=== PATIENT | male | born 1990 | race Caucasian/White ===

== ENCOUNTER 2020-06-14 10:08 | Emergency (ER) | payer BC, SELFPAY ==
--- NOTE | 2020-06-14 10:12 | W.ED.GENAD ---
Discharge Plan Disposition Patient Disposition: HOME Condition: Stable Discharge Details Clinical Impression: Feeling of foreign body in throat Primary Care Provider: None,None ED Provider: Chase Eddy Home Meds and New Rx's Prescriptions: No Action No Known Home Meds RF: 0 Discharge Instructions Instructions: Foreign Body in Pharynx (ED) Additional Instructions: At this time you are able to swallow, breathe, speak without difficulty. X-rays of your chest and neck are unremarkable. Difficult to say whether you could have a small piece of cashew stuck versus irritation secondary to vigorously coughing. Please watch for new or worsening symptoms and return to the ER for any concerns. I am giving you the name and number of our local general surgeon, if your symptoms are not improving over the next couple of days I do recommend that you contact their office for outpatient reevaluation. As we discussed, endoscopy may be indicated. Referrals: Clarisa Peters MD [ [facility] STAFF PHYSICIAN] - Discharge Data Discharge Date/Time-TO BE ENTERED AT DEPARTURE: 06/14/20 11:49 Medical Decision Making 29-year-old gentleman presents after a choking episode last night secondary to inhaling a cashew. Concern of possible foreign body. Patient appears well, nontoxic. Able to speak without difficulty. No airway compromise, stridor, wheezing. Manages his secretions without difficulty. Question foreign body versus aspiration versus irritation secondary to choking and coughing vigorously. Will try EZ effervescent granules, obtain x-ray of chest and soft tissue neck. Patient able to tolerate easy effervescence without difficulty. Reports no real significant change of her symptoms. X-ray of soft tissue neck and chest read by radiology is unremarkable. Patient given Mylanta and lidocaine p.o. Upon reevaluation he reports that his throat is numb so he does not know if the sensation is there still or not. We discussed that there is no evidence of airway compromise, difficulty speaking or swallowing. Certainly there is no indication for emergent endoscopy. Patient understands this and is comfortable with discharge home. He will continue to eat and drink normally and watch symptoms carefully. If this is simply irritation it will likely improve on its own and if there is truly a small foreign body it may resolve on its own with normal eating and drinking. We discussed that if his symptoms persist or worsen he can always return here to the ER and I will give him a referral to surgery so that he can set up an outpatient appointment. Patient comfortable this plan and has no additional questions or concerns. HPI General Mode of arrival: ambulatory. Date/Time Provider Initiated Documentation: 06/14/20 10:12. Limitations to Documentation: no limitations. Information obtained by: patient. HPI Narrative: This is a 29-year-old gentleman with no significant past medical history presenting to the ER for concern of possible cashew stuck in his throat. He reports that he was eating cashews last night, had finished eating them, and after approximately 5-7 minutes later he felt as though there is a small piece of cashew stuck in the back of his mouth. He used his tongue and finger to dislodge the cashew and reports it went down the wrong pipe. He denies any pain, difficulty speaking, swallowing, breathing. He reports that he initially inhales at the cashew and choked. He then attempted to cough vigorously to get the cashew out and after constant vigorous coughing noticed that his sputum was slightly blood-tinged. There was no blood today when coughing. He continues to feel a foreign body-irritation sensation in his throat. No additional concerns. Related Data Home Medications Medication Instructions Recorded Confirmed Unknown [No Known Home Meds] 06/14/20 06/14/20 Allergies Allergy/AdvReac Type Severity Reaction Status Date / Time No Known Allergies Allergy Unverified 06/14/20 10:15 Review of Systems ENT Ears, Nose, Mouth, and Throat: Denies neck pain, Denies sore throat and Denies throat swelling Cardiovascular Cardiovascular: Denies chest pain and Denies dyspnea Respiratory Respiratory: Denies cough, Denies dyspnea, Denies stridor and Denies wheezing Gastrointestinal Gastrointestinal: Denies abdominal pain, Denies nausea and Denies vomiting Musculoskeletal Musculoskeletal: Denies neck pain Allergic/Immunologic Allergic/Immunologic: Denies throat swelling and Denies wheezing FOR[facility] Social History Smoking/Tobacco Use Status: Never Alcohol Intake: current Alcohol Intake frequency: a few times a month Drug use: Socially Substance use type: marijuana Do you feel safe at home: Yes Do you feel safe in your relationship?: Yes Exam Const General: cooperative, healthy appearing, comfortable and no acute distress Orientation: alert, awake and oriented x3 HENMT Head: normal to inspection, normocephalic and atraumatic General nose exam: external nose normal Face and sinus: normal facial exam Mouth: oral mucosae normal and moist mucous membranes Teeth and gingiva: dentition normal Throat: posterior oropharynx normal Eyes Conjunctivae: conjunctivae normal Sclera: sclerae normal Neck Neck: normal visual inspection, full ROM, no lymphadenopathy, no meningeal signs, trachea midline, supple and nontender Resp Effort & Inspection: normal respiratory effort and able to speak in complete sentences Auscultation: clear to auscultation bilaterally Cardio Rate: regular rate Rhythm: regular rhythm GI Palpation: soft and nontender Skin General skin exam: no rashes or lesions noted Neuro General: patient alert, patient awake, moves all extremities and no focal motor deficits Sensory Exam: no sensory deficits noted Psych Appearance: grossly normal Mental Status: mental status grossly normal
[2020-06-14 10:13] VITALS: BP 132/79; PULSE 103; RESP 22; TEMP 36.4; O2SAT 99
--- NOTE | 2020-06-14 10:15 | DI.RAD_ITS ---
EXAM: XR CHEST 2V PA LATERAL CLINICAL HISTORY: choking episode TECHNIQUE: 2D digital imaging was performed. COMPARISON: No exams were available for comparison FINDINGS: The heart is not enlarged. The lungs are clear and well expanded. No pleural effusion seen. Mediastin al contours appear intact. IMPRESSION: Normal chest RADIATION DOSE DELIVERED: Total DLP
[2020-06-14] MEDS: Simethicone/Sod Bicarb/Cit Ac, 4 gram PACKET 1 PACKET PO (10:36)
--- NOTE | 2020-06-14 10:52 | DI.RAD_ITS ---
EXAM: XR SOFT TISSUE NECK CLINICAL HISTORY: ? fb, juan TECHNIQUE: COMPARISON: No exams were available for comparison FINDINGS: Two views were obtained. The tracheal laryngeal air shadow appears normal. No retropharyngeal soft tissue prominence seen. No bony abnormality. IMPRESSION: Negative soft tissue examination of the neck. RADIATION DOSE DELIVERED: Total DLP
[2020-06-14 11:47] VITALS: BP 106/70; PULSE 72; RESP 20; TEMP 36.2; O2SAT 97
== END 2020-06-14 11:49 | disposition home or self-care (01) ==
LOC: ER 11:45
PROVIDERS: Emergency Provider Physician Assistant
DX: R09.89 Other specified symptoms and signs involving the circulatory and respiratory systems (principal)
CPT/HCPCS: 99284; 70360; 71046

== ENCOUNTER 2020-12-19 10:53 | Outpatient (REF) | payer BC, SELFPAY ==
[2020-12-19 14:35] LABS: Calculated LDL 77 mg/dL (<100); Cholesterol 168 mg/dL (<200); HDL Cholesterol 77 mg/dL (40-60); Triglyceride 73 mg/dL (<150)
== END 2020-12-19 10:54 | disposition home or self-care (01) ==
LOC: NCHCN 10:53
PROVIDERS: PCP Family Medicine; Visit Provider Family Medicine
DX: Z00.00 Encounter for general adult medical examination without abnormal findings (principal); J30.9 Allergic rhinitis, unspecified
CPT/HCPCS: 80061

== ENCOUNTER 2021-01-20 11:11 | Outpatient (REF) | payer BC, SELFPAY ==
--- NOTE | 2021-01-20 10:30 | SKI_PTH ---
PATIENT: Torey Davis LOC: [facility] U#:[id number] AGE/SX: 30/M ROOM: RE01/20/[address]: Abdias Montaño : 1990 BED: DIS: 01/20/2021 SPEC #: [id number] RECD: 01/20/21 13:09 STATUS: DARRELL REInessa #: [id number] VINICIUS: 01/20/21 10:[address]: Abdias Montaño DEPT: Surgical Specimen RECD BY: Johana Art Tissues: 1 - SKIN BIOPSY(SHAVE/PUNCH) Procedures: SKIN LEVEL 4 SPECIAL STAIN 1 Comments: [id number]
[2021-01-20 13:32] LABS: Abs Immature Grans 0.01 10^3/uL (0.0-0.06); Absolute Basophil Count 0.02 10^3/uL (0.0-0.2); Absolute Eosinophil Count 0.35 10^3/uL (0.0-0.7); Absolute Lymphocyte Count 1.29 10^3/uL (1.2-3.4); Absolute Monocyte Count 0.46 10^3/uL (0.1-0.8); Absolute Neutrophil Count 4.25 10^3/uL (1.2-6.7); Basophils % 0.3; Eosinophils % 5.5; HCT 43.2 % (40.0-50.0); Immature Grans % 0.2; Lymphocytes % 20.2; MCH 31.4 pg (27.0-33.0); MCHC 34.7 % (32.0-36.0); MCV 90.6 fL (80-95); MPV 9.4 fL (8.0-11.0); Monocytes % 7.2; Neutrophils % 66.6; Nucleated RBC 0 %; Platelet Count 181 10^3/uL (130-400); RBC 4.77 10^6/uL (4.36-5.78); RDW 11.5 % (11.8-14.1); RDW-SD 38.2 fL; WBC 6.38 10^3/uL (4.4-10.8)
[2021-01-20 13:42] LABS: ESR < 2 mm//hr (0-15)
[2021-01-20 14:29] LABS: ALT 27 U/L (16-63); AST 11 U/L (15-37); Albumin 4.2 g/dL (3.4-5.0); Alkaline Phosphatase 42 U/L (46-116); Anion Gap 7.6 mmol/L (3-11); BUN 16 mg/dL (7-18); Bilirubin, Total 0.6 mg/dL (0.2-1.0); CO2 29.4 mmol/L (21.0-32.0); CREATININE 0.7 mg/dL (0.70-1.30); Calcium 8.9 mg/dL (8.5-10.1); Chloride 103 mmol/L (98-107); Glucose 90 mg/dL (74-106); Sodium 140 mmol/L (136-145)
== END 2021-01-20 11:12 | disposition home or self-care (01) ==
LOC: NCHCN 11:11
PROVIDERS: PCP Family Medicine; Visit Provider Family Medicine
DX: L30.8 Other specified dermatitis (principal)
CPT/HCPCS: 80053; 85652; 85025; 88305; 88312

== ENCOUNTER 2024-09-21 18:48 | Outpatient (REF) | payer BC, SELFPAY ==
[2024-09-21 16:01] LABS: Absolute Basophil Count 0.02 10^3/uL (0.0-0.2); Absolute Eosinophil Count 0.04 10^3/uL (0.0-0.7); Absolute Lymphocyte Count 1.52 10^3/uL (1.2-3.4); Absolute Neutrophil Count 1.47 10^3/uL (1.2-6.7); Basophils % 0.6 %; Eosinophils % 1.2 %; HCT 44.3 % (40.0-50.0); HGB 15.6 g/dL (13.5-17.5); Lymphocytes % 45.4 %; MCH 31.3 pg (27.0-33.0); MCHC 35.2 % (32.0-36.0); MCV 89 fL (80-95); Neutrophils % 43.8 %; Platelet Count 194 10^3/uL (130-400); RBC 4.99 10^6/uL (4.36-5.78); RDW 11.2 % (11.8-14.1); RDW-SD 35.8 fL; WBC 3.35 10^3/uL (4.4-10.8)
[2024-09-21 22:53] LABS: Hepatitis C Ab w Rflx HCV PCR Negative (Negative)
[2024-09-22 10:58] LABS: HIV-1/2 Ag & Ab Screen Negative (Negative)
== END 2024-09-21 18:49 | disposition home or self-care (01) ==
LOC: NCHCN 18:48
PROVIDERS: PCP Family Medicine; Visit Provider Family Medicine
DX: Z51.81 Encounter for therapeutic drug level monitoring (principal); Z11.4 Encounter for screening for human immunodeficiency virus [HIV]; Z11.59 Encounter for screening for other viral diseases
CPT/HCPCS: 86803; 87389; 85025

== ENCOUNTER 2025-05-10 05:30 | Emergency (ER) | payer BC, SELFPAY ==
[2025-05-10 05:52] VITALS: BP 130/92; PULSE 76; RESP 16; O2SAT 99
--- NOTE | 2025-05-10 07:15 | ED.GENADUL_ITS ---
Discharge Plan Disposition Patient Disposition: Home Discharge Details Clinical Impression: Lower back pain Primary Care Provider: Kenia Hall ED Provider: Sree Velazquez Home Meds and New Rx's Prescriptions: New diazepam [Valium] 5 mg tablet 5 mg PO TID PRNQty: 5 0RF Continued lisdexamfetamine 30 mg capsule 30 mg PO DAILY Discharge Instructions Additional Instructions: You are seen in the emergency department for your low back pain. As we discussed please return if you develop any weakness in your legs if you take any falls if you lose control of your bowels or bladder or if you have any other concerns. For your pain please take medications as follows: 1. Take acetaminophen (Tylenol), 1,000 mg (two 500 mg tabs) every 6 hours [2. Take ibuprofen (Advil), 400 mg every 6 hours.] You are also receiving an additional medicine called diazepam which you should take as directed. Please do not drive or drink alcohol after taking diazepam. HPI General Date/Time Provider Initiated Documentation: 05/10/25 06:09 . HPI Narrative: MDM This is an overall very well-appearing normothermic and not tachycardic 34-year-old male with acute on chronic low back pain lacking red flags for which patient will receive a short course of diazepam prior to empiric trial of discharge with expectant outpatient management. Patient has no history of malignancy to suggest increased risk for pathological fracture. His feet are warm and well-perfused with intact PT and DP pulses so I am not concerned for critical limb ischemia so I do not feel that the patient requires a CT angiogram of his abdomen pelvis with runoffs. He has not lost control of his bowels nor bladder so I am not suspicious for cauda equina syndrome. No pain out of proportion to suggest necrotizing soft tissue infection. Patient has no neur ological deficits to suggest benefit from emergent MRI. Soft nontender abdomen with no abdominal pain so my suspicion is low for appendicitis. No chest pain to suggest pneumothorax nor pneumonia. No recent spinal instrumentation so I am not suspicious for spinal epidural hematoma. Patient denies IV drug use and has not had fevers so my suspicion is low for spinal epidural abscess. Patient has no rash to his back to suggest zoster. Patient has had similar symptoms in the past plans to go to the chiropractor tomorrow. I counseled the patient on scheduled acetaminophen ibuprofen and also gave him a short course of diazepam after reviewing his PDMP record. We discussed that he should return to the ED if he developed any numbness to his legs or any weakness of his lower extremities or if he had any other concerns. He understood his return indications and was discharged with empiric trial of expectant outpatient management. HPI This is a patient with a history of recurrent back pain presenting with acute back pain. The patient began experiencing back pain on 05/09/2025 at 10 AM, which he describes as a sensation of his back being on the verge of giving out. The pain was triggered while picking up an object. He reports no unusual activities the previous day. He has a history of back issues, but this episode is particularly intense. He notes that his posture is currently abnormal due to the pain. He has been managing the pain with ibuprofen, but it has not provided relief. He has an appointment with a chiropractor tomorrow and is seeking immediate intervention to alleviate the pain. He reports no recent back surgeries or procedures, loss of bowel or bladder control, use of anticoagulants, loss of sensation between his legs, numbness, tingling, fever, intravenous drug use, diabetes, chest pain, nausea, vomiting, or abdominal pain. He typically experiences minor back strains 3 to 4 times a year, with one or two major episodes annually. These are usually managed by his chiropractor. Patient denies IV drug use. Exam General: Well-appearing in no acute distress speaking in complete sentences. Head: Normocephalic, atraumatic. Eye: Extraocular eye movements intact. No conjunctival injection. No scleral icterus. Ear, nose, mouth, throat: Grossly normal inspection. Normal voice, handling secretions normally. Neck: Trachea midline. Cardiovascular: Well-perfused distal extremities. Respiratory: Nonlabored respiration. Gastrointestinal: Nondistended abdomen. Musculoskeletal: Sensation and motor function intact bilateral lower extremities. 5 out of 5 bilateral lower extremity strength in dorsi and plantarflexion. Skin: Normal for age and race, grossly normal temperature and turgor. No acute rash. Neurologic: Alert and appropriate, no apparent acute deficits. Psychiatric: Mood and manner are appropriate. Grooming and personal hygiene are appropriate. Related Data Home Medications ?Medication ?Instructions ?Recorded ?Confirmed diazepam 5 mg tablet (Valium) 5 mg PO TID PRN #5 tabs 05/10/25 lisdexamfetamine 30 mg capsule 30 mg PO DAILY 05/10/25 05/10/25 Previous Rx's ?Medication ?Instructions ?Recorded diazepam 5 mg tablet (Valium) 5 mg PO TID PRN #5 tabs 05/10/25 Allergies Allergy/AdvReac Type Severity Reaction Status Date / Time No Known Allergies Allergy Unverified 05/10/25 05:56 General Stated Complaint: Nk/Back Pain KARISHMA: 4 Course Vital Signs Vital signs: Vital Signs Pulse 76 05/10/25 05:52 Respiratory Rate 16 05/10/25 05:52 Blood Pressure 130/92 H 05/10/25 05:52 Pulse Oximetry 99 05/10/25 05:52 Pulse 76 05/10/25 05:52 Respiratory Rate 16 05/10/25 05:52 Blood Pressure 130/92 H 05/10/25 05:52 Blood Pressure Position Sitting 05/10/25 05:52 Pulse Oximetry 99 05/10/25 05:52 Oxygen Delivery Method Room Air 05/10/25 05:52 Oxygen Flow Rate 0 05/10/25 05:52 Pain Level 8 05/10/25 05:58 PFSH All Active Problems (Updated 05/10/25 @ 07:27 by Sree Velazquez MD) Lower back pain (Acute) Social History Smoking/Tobacco Use Status: Never Smoking risk assessment performed?: Yes Alcohol Intake: current Alcohol Intake frequency: a few times a month Alcohol type: beer Drug use: Socially Substance use type: marijuana Housing: house Do you feel safe at home: Yes Do you feel safe in your relationship?: Yes
[2025-05-10 07:29] VITALS: BP 131/106; PULSE 89; RESP 16; TEMP 36.6
== END 2025-05-10 07:36 | disposition home or self-care (01) ==
LOC: ER 07:43
PROVIDERS: Emergency Provider Emergency Medicine; PCP Family Medicine
DX: M54.50 Low back pain, unspecified (principal)
CPT/HCPCS: 99283 ×2

== ENCOUNTER 2025-05-11 16:05 | Outpatient (REF) | payer BC, SELFPAY ==
[2025-05-11 15:52] LABS: Abs Immature Grans 0.01 10^3/uL (0.0-0.06); HCT 45.7 % (40.0-50.0); HGB 16.3 g/dL (13.5-17.5); Immature Grans % 0.2 %; MCH 31.9 pg (27.0-33.0); MCHC 35.7 % (32.0-36.0); MCV 89 fL (80-95); MPV 9.5 fL (8.0-11.0); Platelet Count 204 10^3/uL (130-400); RBC 5.11 10^6/uL (4.36-5.78); RDW 11.4 % (11.8-14.1); RDW-SD 37.1 fL; WBC 5.44 10^3/uL (4.4-10.8)
== END 2025-05-11 16:06 | disposition home or self-care (01) ==
LOC: NCHCN 16:05
PROVIDERS: PCP Family Medicine; Visit Provider Family Medicine
DX: D72.819 Decreased white blood cell count, unspecified (principal)
CPT/HCPCS: 85025

== ENCOUNTER 2025-06-04 10:00 | Outpatient (CLI) | payer BC, SELFPAY ==
--- NOTE | 2025-06-04 | DI.RAD_ITS ---
Exam(s) XR THORACIC SPINE COMPLETE EXAM: XR THORACIC SPINE COMPLETE CLINICAL HISTORY: M54.9 Dorsalgia, spine pain. TECHNIQUE: 2D digital imaging was performed. Three views. COMPARISON: CR XR SOFT TISSUE NECK from 06/14/2020 FINDINGS: BONES: There is no fracture or destructive lesion. The vertebral bodies and posterior elements are unremarkable. ALIGNMENT: Within normal limits. DISKS: Interverebral disc spaces are maintained. SOFT TISSUE: Visualized lungs are clear. IMPRESSION: Unremarkable radiographs of the thoracic spine. DATA REPOSITORY: RADIATION DOSE DELIVERED:
--- NOTE | 2025-06-04 | DI.RAD_ITS ---
Exam(s) XR LUMBAR SPINE COMPLETE EXAM: XR LUMBAR SPINE COMPLETE CLINICAL HISTORY: M54.50 Low back pain, Acute right sided w/o sciatica. TECHNIQUE: 2D digital imaging was performed. Five three views performed upright. COMPARISON: CR XR THORACIC SPINE COMPLETE from 06/04/2025 FINDINGS: BONES: No fracture or destructive lesion. Vertebral body heights are maintained. No facet hypertrophy identified . DISKS: The L5-S1 disc space is not well profiled. The remaining intervertebral disc spaces are maintained. ALIGNMENT: The left iliac crest projects approximately 1 cm superior to the right which could indicate leg length discrepancy. There is a mild scoliosis at the L5-S1 level. SOFT TISSUE: Normal. IMPRESSION: The left iliac crest projects approximately 1 cm superior to the right which could indicate leg length discrepancy. There is a mild scoliosis at the L5-S1 level. The L5-S1 disc space is not well profiled secondary to the scoliosis. DATA REPOSITORY: RADIATION DOSE DELIVERED:
== END 2025-06-04 10:20 ==
LOC: DI 10:00
PROVIDERS: PCP Family Medicine; Visit Provider Family Medicine
DX: M54.9 Dorsalgia, unspecified (principal)
CPT/HCPCS: 72072; 72110